=== PATIENT | male | born 1990 | race Caucasian/White ===

== ENCOUNTER 2021-06-27 13:59 | Emergency (ER) | payer BC, SELFPAY ==
--- NOTE | ~2021-06-27 | XR_ITS ---
EXAMINATION: XR chest 2V DATE: 06/27/2021 14:43 INDICATION: Cough TECHNIQUE: PA and lateral views of the chest are obtained. COMPARISON: None available FINDINGS: Right apical opacities likely reflect scarring. There is no pleural effusion or pneumothora x. The cardiomediastinal silhouette is normal. The visualized bones and soft tissues are unremarkable . IMPRESSION: 1. No acute cardiopulmonary abnormality. Reviewed, dictated and finalized at location A.
[2021-06-27 14:12] VITALS: BP 126/69; PULSE 60; RESP 16; TEMP 37.8; O2SAT 100
--- NOTE | 2021-06-27 14:12 | ED.URI ---
HPI - URI/Sore Throat General Chief Complaint: Upper Respiratory Infection Stated Complaint: SOB, Sore Throat Time Seen by Provider: 06/27/21 14:12 Source: patient and RN notes reviewed History of Present Illness HPI Narrative: Patient is a 30-year-old male who presents the urgent care with complaints of right-sided pain with deep breathing, sore throat, drainage and runny nose. Patient states that his symptoms started 2 days ago with a sore throat starting last night. Patient has not taken anything [id number] for his symptoms. Denied of any known fever prior to arrival. Denies of nausea or vomiting. States that his rapid Covid test this morning was negative. No other acute complaints. Denies of any known exposure to Covid. No acute distress noted. Patient aware of the plan of care. Some parts of this dictation were generated by voice recognition software and may contain typographical and/or grammatical inaccuracies. Related Data Home Medications Medication Instructions Recorded Confirmed No Home Medications 06/27/21 06/27/21 Allergies Allergy/AdvReac Type Severity Reaction Status Date / Time No Known Allergies Allergy Verified 06/27/21 14:22 Review of Systems Review of Systems: CONSTITUTIONAL: Denies fever, chills, or sweats. EYES: Denies visual changes, redness, or discharge. ENT: Reports of rhinorrhea, postnasal drainage and sore throat CARDIOVASCULAR: Denies chest pain, palpitations, or edema. RESPIRATORY: Denies cough or dyspnea. Reports of right-sided pain with deep breathing GASTROINTESTINAL: Denies abdominal pain, nausea, vomiting, or diarrhea. GENITOURINARY: Denies dysuria or hematuria. SKIN: Denies rash or itching. MUSCULOSKELETAL: Denies back pain, joint pain, or myalgia. NEUROLOGIC: Denies headache, numbness, or weakness. All other systems reviewed are negative, except as documented in HPI. PMFSH Comments At the time of my signature, I reviewed and agree with the nursing past medical, surgical, social, and family history. There is no relevant family history pertinent to the patient complaint. Exam Narrative: GENERAL: This is a well-nourished, well-developed patient, in no apparent distress. HEAD: normocephalic, atraumatic. EYES: PERRL. Sclera clear/white. Vision is grossly intact. EARS: External ears normal, auditory canals clear and without drainage, TMs normal without perforation. Hearing grossly intact. NOSE: External nose normal with no obvious nasal discharge, nares without redness, no rhinorrhea. THROAT: Mucous membranes moist, mild erythema noted posterior oropharynx with moderate postnasal drainage NECK: Neck supple CARDIOVASCULAR: Regular rate and rhythm without murmurs, gallops, or rubs. Mild right sided chest reproducible pain and pain exacerbated with movement. RESPIRATORY: Clear to auscultation. Breath sounds equal bilaterally. SKIN: warm, intact with no suspicious lesions or rash, good texture and turgor. NEURO: awake, alert, and oriented to person, place and time. There were no obvious focal neurologic abnormalities. EXTREMITIES: No clubbing, cyanosis, or edema. Course Vital Signs Vital signs: Vital Signs Temperature 100.0 F H 06/27/21 14:12 Pulse Rate 60 06/27/21 14:12 Respiratory Rate 16 06/27/21 14:12 Blood Pressure 126/69 06/27/21 14:12 Pulse Oximetry 100 06/27/21 14:12 Temperature 100.0 F H 06/27/21 14:12 Pulse Rate 60 06/27/21 14:12 Respiratory Rate 16 06/27/21 14:12 Blood Pressure 126/69 06/27/21 14:12 Pulse Oximetry 100 06/27/21 14:12 Reviewed MDM - URI/Sore Throat MDM Narrative Medical decision making narrative: Reviewed lab results with the patient. He is aware that strep swab was negative. Educated patient on culture we will call within 72 hours if culture is positive and antibiotics are necessary. Reviewed x-ray results with the patient. He is aware that chest x-ray does not show any indication of infectious disease or pn
[2021-06-28 19:38] LABS: SARS-CoV-2 RNA PCR Negative
== END 2021-06-27 15:03 | disposition home or self-care (01) ==
PROVIDERS: Emergency Provider Nurse Practitioner Family; PCP Internal Medicine
DX: M94.0 Chondrocostal junction syndrome [Tietze] (principal); J06.9 Acute upper respiratory infection, unspecified; Z20.822 Contact with and (suspected) exposure to COVID-19
CPT/HCPCS: 71046; 87081; 87880; 99213; C9803; G0463; U0003; U0005

== ENCOUNTER 2023-01-30 11:31 | Emergency (ER) | payer BC, SELFPAY ==
[2023-01-30 11:38] VITALS: BP 119/77; PULSE 66; RESP 16; TEMP 37.1; O2SAT 100
--- NOTE | 2023-01-30 12:13 | ED.NAVMDI ---
HPI - Nausea/Vomiting/Diarrhea General Chief complaint: Nausea/Vomiting/Diarrhea Stated complaint: been nausea / and diarrhea Time Seen by Provider: 01/30/23 12:05 Source: patient, RN notes reviewed and old records reviewed Mode of arrival: ambulatory Limitations: no limitations History of Present Illness HPI Narrative: 32-year-old male who [facility] with complaints of gastrointestinal issues since Thursday evening after eating sushi. Patient reports that family was also ill but theirs has resolved. Patient reports that initially he had nausea and vomiting and then he had had diarrhea. Was feeling better then ate pizza and had urdu food and started with diarrhea again. Patient reports that last night he started having extreme gas pains, took some GasX which has helped, Today patient has not had vomiting or diarrhea still feel some nausea and bloating feeling. MD elicited complaint: nausea, vomiting and diarrhea Onset (ago): day(s) (4) Description of vomiting: food contents and watery Description of diarrhea: watery Associated nausea: Yes Treatment prior to arrival: other OTC medicine Related Data Allergies Allergy/AdvReac Type Severity Reaction Status Date / Time No Known Allergies Allergy Verified 01/30/23 11:43 Review of Systems Review of Systems: CONSTITUTIONAL: Denies fever, chills, or sweats. EYES: Denies visual changes, redness, or discharge. ENT: Denies rhinorrhea, congestion, sore throat, or otalgia. CARDIOVASCULAR: Denies chest pain, palpitations, or edema. RESPIRATORY: Denies cough or dyspnea. GASTROINTESTINAL: Denies abdominal pain,positive for nausea, vomiting, or diarrhea. GENITOURINARY: Denies dysuria or hematuria. SKIN: Denies rash or itching. MUSCULOSKELETAL: Denies back pain, joint pain, or myalgia. NEUROLOGIC: Denies headache, numbness, or weakness. PSYCHIATRIC: Denies anxiety or depression. All systems reviewed & are unremarkable except as noted in HPI and below PMFSH Surgical History Surgical History H/O wrist surgery History of gastric surgery age 5 Social History Social History Smoking status: Never smoker Living arrangements: with family Gender identity (if verbalized by the patient): Male Comments At time of signature, agree with nursing past medical, surgical, social and family history. There is no relevant family history pertinent to the presenting complaint Exam Narrative: GENERAL: Well-appearing, well-nourished, and in no acute distress. HEAD: Normocephalic, atraumatic. EYES: PERRLA and EOMI. ENT: Nares clear, no rhinorrhea or epistaxis. Mucous membranes moist.TM's normal with good light reflex, throat pink with no swelling NECK: Supple.no lymphadenopathy CHEST: Clear to auscultation. No respiratory distress.SAO2 100% on room air HEART: Regular rate and rhythm. No murmur heard. Normal peripheral pulses. ABDOMEN: Soft, nontender to palpation, nondistended, normal active bowel sounds. gassy feeling and some nausea EXTREMITIES: Normal range of motion. No edema. SKIN: Warm, dry, no rash. NEURO: No focal deficits. Alert and oriented x3. Course Course Emergency Course: Patient is aware of diagnosis, understands and agrees to treatment plan.? Anticipatory guidance given.? Patient agrees to follow-up as directed and is aware of reasons to seek care at the emergency department. Portions of this record may have been created with voice recognition software Level of Care: Express Care Visit Vital Signs Vital signs: Vital Signs Temperature 37.1 C 01/30/23 11:38 Pulse Rate 66 01/30/23 11:38 Respiratory Rate 16 01/30/23 11:38 Blood Pressure 119/77 01/30/23 11:38 Pulse Oximetry 100 01/30/23 11:38 Oxygen Delivery Room Air 01/30/23 11:38 Temperature 37.1 C 01/30/23 11:38 Pulse Rate 66 01/30/23 11:38 Respiratory Rate 16 01/30/23 11:38
== END 2023-01-30 12:31 | disposition home or self-care (01) ==
PROVIDERS: Emergency Provider Registered Nurse; PCP Internal Medicine
DX: K52.9 Noninfective gastroenteritis and colitis, unspecified (principal)
CPT/HCPCS: 99213; G0463

== ENCOUNTER 2024-08-22 12:44 | Emergency (ER) | payer BC, SELFPAY ==
[2024-08-22 13:07] VITALS: BP 112/79; PULSE 66; RESP 16; TEMP 36.6; O2SAT 98
--- NOTE | 2024-08-22 13:25 | ED_ITS ---
HPI - Dental/Oral General Chief complaint: Dental/Oral Stated complaint: tongue white/white throat History of Present Illness HPI Narrative: 33 y/o male presented for c/o white coating on tongue. onset yesterday. Says the area under the tongue was swollen yesterday, but is better today. States it started after 2 days of sexual activity. Denies concern for STD at this time. Denies painful swallow or difficulty maintaining secretions.. Says his girlfriend has a cough. Denies cough,n/v/d/f/c. denies smoking, states he hits a vape. Related Data Home Medications Medication Instructions Recorded Confirmed dextroamphetamine-amphetamine 10 08/22/24 mg tablet Allergies Allergy/AdvReac Type Severity Reaction Status Date / Time No Known Allergies Allergy Verified 01/30/23 11:43 Review of Systems Review of Systems: ROS per HPI [facility] Surgical History Surgical History H/O wrist surgery History of gastric surgery age 5 Social History Social History Smoking status: Never smoker Living arrangements: with family Gender identity (if verbalized by the patient): Male Exam Narrative: GENERAL: well-appearing, no acute distress. EYES: conjunctivae clear ENT: Mucous membranes moist. TMs pearly vines with normal light reflex bilaterally; no tragal tenderness. Oropharynx not erythematous without lesions. Tongue appears to have white coating. No swelling under tongue. Tonsils not enlarged and without exudate. No drooling, no hoarseness, no trismus, uvula midline. No tripod positioning, hot potato voice, or soft palate swelling. NECK: Supple. No lymphadenopathy CHEST: Clear to auscultation, breath sounds equal. No respiratory distress, speaks in full sentences. HEART: Regular rate and rhythm. No murmur heard. SKIN: Warm, dry, no rash. NEURO: Alert and oriented x3. Course Course Emergency Course: Patient is aware of diagnosis, understands and agrees to treatment plan. Anticipatory guidance given. Patient agrees to follow-up as directed and is aware of reasons to seek care at the emergency department. Portions of this record may have been created with voice recognition software Level of Care: Express Care Visit Vital Signs Vital signs: Vital Signs Temperature 98 F 08/22/24 13:07 Pulse Rate 66 08/22/24 13:07 Respiratory Rate 16 08/22/24 13:07 Blood Pressure 112/79 08/22/24 13:07 Pulse Oximetry 98 08/22/24 13:07 Oxygen Delivery Room Air 08/22/24 13:07 Temperature 98 F 08/22/24 13:07 Pulse Rate 66 08/22/24 13:07 Respiratory Rate 16 08/22/24 13:07 Blood Pressure 112/79 08/22/24 13:07 Pulse Oximetry 98 08/22/24 13:07 Oxygen Delivery Room Air 08/22/24 13:07 MDM - Dental/Oral MDM Narrative Medical decision making narrative: Results of strep test reviewed with patient. Will treat for yeast. Discussed physical exam findings. Advised supportive measures and signs/symptoms to go to the ER. Pt is appropriate for outpt treatment and f/u. Differential Diagnosis Differential diagnosis: Likely other ( influenza, covid, sinusitis, OM, strep pharyngitis, URI, viral infection, candidiasis) Lab Data Labs: Lab Results 08/22/24 Range/Units 13:39 POC Grp A Strep Screen Negative (Negative) Discharge Plan Discharge Clinical Impression: Tongue pain Patient Disposition: Home, Self-Care Condition: Stable Instructions: Antibiotic Form, Oral Candidiasis (ED) Additional Instructions: Oral thrush is caused by the overgrowth of a yeast (a type of fungus that is naturally occurring in the mouth) It can cause mild discomfort. Tylenol as needed for pain/fever Once treatment has started, symptoms should improve within 2-3 days. It will take a little longer (around 7 days) for the infection to completely clear. Follow up with PCP . Go to the ER for worsening symptoms or concerns. Prescriptions: New nystatin 100,000 unit/mL suspension 400,000 unit PO QID 7 Days Qty: 112 0RF Rx Instructions: administer 1/2 of dose in each side of the mouth; swish and spit No Action dextroamphetamine-amphetamine 10 mg tablet Follow-up/Referrals: Dario,Brant Ba MD [Primary Care Provider] - Stand Alone Forms: Work/School Release IP
[2024-08-22 13:52] LABS: EDSTREPNEGPOS1 Negative (Negative)
== END 2024-08-22 14:04 | disposition home or self-care (01) ==
PROVIDERS: Emergency Provider Nurse Practitioner Family; PCP Internal Medicine
DX: K14.6 Glossodynia (principal); Z98.84 Bariatric surgery status
CPT/HCPCS: 87081; 87880; 99213; G0463

== ENCOUNTER 2024-09-23 10:17 | Emergency (ER) | payer BC, SELFPAY ==
[2024-09-23 10:24] VITALS: BP 142/88; PULSE 81; RESP 16; TEMP 36.7; O2SAT 99
--- NOTE | 2024-09-23 10:50 | ED_ITS ---
HPI - Head Injury General Chief complaint: Head Injury Stated complaint: Head Injury/Dizziness Time Seen by Provider: 09/23/24 10:45 Source: patient, RN notes reviewed and old records reviewed Mode of arrival: ambulatory Limitations: no limitations History of Present Illness HPI Narrative: 33year old male presents to express care with complaints of being hit in the right temporal area with baseball last evening thrown from about 15 feet with no loss of consciousness at time of incident but it definitely rang his bush he states. Patient reports that he has had consistent headache since the incident which has not been relieved by Tylenol.Patient reports that he awoke during the night with increased headache pain. Patient reports that he has dizziness when he moves, denies any nausea or vomiting.Patient reports that he feel like he is only 75% here. MD Complaint: head injury (hit in right temporal area by baseball) Onset (ago): day(s) (last evening) Mechanism of Injury: sports related injury (hit in head by baseball) Place: outdoors Loss of Consciousness: no Location of injury: temporal (right) Severity: moderate Associated symptoms: other (headache and dizziness) Related Data Home Medications ?Medication ?Instructions ?Recorded ?Confirmed ?Last Taken ?Type dextroamphetamine-amphetamine 10 08/22/24 Unknown History mg tablet Allergies Allergy/AdvReac Type Severity Reaction Status Date / Time No Known Allergies Allergy Verified 01/30/23 11:43 Review of Systems Review of Systems: CONSTITUTIONAL: Denies fever, chills, or sweats. EYES: Denies visual changes, redness, or discharge. ENT: Denies rhinorrhea, congestion, sore throat, or otalgia. CARDIOVASCULAR: Denies chest pain, palpitations, or edema. RESPIRATORY: Denies cough or dyspnea. GASTROINTESTINAL: Denies abdominal pain, nausea, vomiting, or diarrhea. GENITOURINARY: Denies dysuria or hematuria. SKIN: Denies rash or itching. MUSCULOSKELETAL: Denies back pain, joint pain, or myalgia. NEUROLOGIC: Reports headache,no numbness, reports feelings of dizziness with any movement, patient reports that headache awoke him during the night with increased headache pain. PSYCHIATRIC: Denies anxiety or depression. All systems reviewed & are unremarkable except as noted in HPI and below PMFSH Past Medical History Medical History ADHD (attention deficit hyperactivity disorder) Gastroenteritis Surgical History Surgical History H/O wrist surgery History of gastric surgery age 5 Social History Social History Smoking status: Never smoker Living arrangements: with family Gender identity (if verbalized by the patient): Male Comments At time of signature, agree with nursing past medical, surgical, social and family history. There is no relevant family history pertinent to the presenting complaint Exam Narrative: GENERAL: Well-appearing, well-nourished, pale and in no acute distress. HEAD: Normocephalic, atraumatic. reports headache to right temporal area not relieved by Tylenol, states awoke during the night with increased headache pain. EYES: PERRLA and EOMI. no nystagmus ENT: Nares clear, no rhinorrhea or epistaxis. Mucous membranes moist. NECK: Supple.no lymphadenopathy CHEST: Clear to auscultation. No respiratory distress.SAO2 99% on room air HEART: Regular rate and rhythm. No murmur heard. Normal peripheral pulses. ABDOMEN: Soft, nontender, nondistended, normal active bowel sounds. EXTREMITIES: Normal range of motion. No edema. SKIN: Warm, dry, no rash. NEURO: No focal deficits. Alert and oriented x3.reports dizziness with any movement, cranial nerves intact with no deficit noted, gait steady, Course Course Emergency Course: Patient is aware of diagnosis, understands and agrees to treatment plan.? Anticipatory guidance given.? Patient agrees to follow-up as directed and is aware of reasons for transfer to the emergency department. Portions of this record may have been created with voice recognition software Level of Care: Express Care Visit Vital Signs Vital signs: Vital Signs Temperature 36.7 C 09/23/24 10:24 Pulse Rate 81 09/23/24 10:24 Respiratory Rate 16 09/23/24 10:24 Blood Pressure 142/88 H 09/23/24 10:24 Pulse Oximetry 99 09/23/24 10:24 Oxygen Delivery Room Air 09/23/24 10:24 Temperature 36.7 C 09/23/24 10:24 Pulse Rate 81 09/23/24 10:24 Respiratory Rate 16 09/23/24 10:24 Blood Pressure 142/88 H 12/13/24 10:24 Pulse Oximetry 99 09/23/24 10:24 Oxygen Delivery Room Air 09/23/24 10:24 Reviewed Transfer Transfered to: [facility] ([place]) Transportation: Other (private car) Transfer rationale: hit in head yesterday evening with baseball in right temporal from 15 feet no LOC at time of incident. reports headache pain increase and dizziness today Accepting physician: Dr Estevez Transfer comments: Patient transferred to [facility] ER per private car, patient refuses ambulance transfer. MDM - Head Injury MDM Narrative Medical decision making narrative: [id number] Call placed to ED at [facility] ED and condition update given with PMH and VS reviewed with Alicia RN with Dr Estevez accepting patient for transfer. Differential Diagnosis Differential diagnosis: Likely concussion without loss of consciousness, closed head injury, postconcussion syndrome and other (dizziness and headache, brain bleed) Medical Records Attestation: I reviewed the patient's medical records. Critical Care Time Critical Care Time Critical Care Time: No Discharge Plan Discharge Clinical Impression: Closed head injury, Dizzinesses Patient Disposition: Acute Care Hospital Condition: Stable Patient Language: Gambian Prescriptions: No Action dextroamphetamine-amphetamine 10 mg tablet nystatin 100,000 unit/mL suspension 400,000 unit PO QID 7 Days Qty: 112 0RF Rx Instructions: administer 1/2 of dose in each side of the mouth; swish and spit Follow-up/Referrals: Dario,Brant Ba MD [Primary Care Provider] - Time of Disposition: 11:07 Quality [place] Coma Scale Eyes: Open Verbal: Oriented and Alert Motor: Follows Commands [place] Coma Total Score: 15
== END 2024-09-23 11:09 | disposition short-term general hospital (02) ==
PROVIDERS: Emergency Provider Registered Nurse; PCP Internal Medicine
DX: S09.90XA Unspecified injury of head, initial encounter (principal); W21.03XA Struck by baseball, initial encounter; R42 Dizziness and giddiness
CPT/HCPCS: 99212; G0463